=== PATIENT | male | born 1950 | race Caucasian/White ===

== ENCOUNTER 2021-12-05 18:38 | Inpatient (IN) | payer MEDICARE, OTHER ==
[~2021-12-05] VITALS: Ht 180.3 cm; Wt 114.8 kg
[~2021-12-05 18:38] MED LIST: AMIODARONE HCL100 MG PO; METOPROLOL TART25 MG PO
[2021-12-05 19:55] LABS: HEMOGLOBIN 14.7 gm/dl (14.0-17.5); RED BLOOD COUNT 4.41 M/UL (4.20-5.50); WHITE BLOOD COUNT 9.3 K/UL (4.5-11.0)
[2021-12-05 20:26] LABS: BUN/CREATININE RATIO 20 (0-10)
[2021-12-06 04:41] LABS: HEMOGLOBIN 14.4 gm/dl (14.0-17.5); RED BLOOD COUNT 4.32 M/UL (4.20-5.50)
[2021-12-06 05:00] LABS: BUN/CREATININE RATIO 17 (0-10)
[2021-12-06] MEDS ORDERED: OXYBUTYNIN CHLO10 MG PO (08:44)
[2021-12-06] MEDS ORDERED: AMIODARONE HCL200 MG PO (08:45)
[2021-12-06] MEDS ORDERED: ECOTRIN81 MG PO (08:45)
[2021-12-06] MEDS ORDERED: SINEMET 25-1001 EACH PO (08:46)
[2021-12-06] MEDS ORDERED: CELECOXIB100 MG PO (08:47)
[2021-12-06] MEDS ORDERED: CETIRIZINE HCL10 MG PO (08:47)
[2021-12-06] MEDS ORDERED: DOCUSATE SODIU250 MG PO (08:48)
[2021-12-06] MEDS ORDERED: MELATONIN10 M2 PO (08:49)
[2021-12-06] MEDS ORDERED: VITAMIN D21250 MCG PO (08:49)
[2021-12-06] MEDS ORDERED: SINGULAIR10 MG PO (08:50)
[2021-12-06] MEDS ORDERED: ROPINIROLE HCL4 MG PO (08:50)
[2021-12-06] MEDS ORDERED: UNISOM25 MG PO (08:51)
[2021-12-06] MEDS ORDERED: IBUPROFEN PM C1 EACH PO (08:53)
[2021-12-06] MEDS ORDERED: GABAPENTIN600 MG PO ×2 (08:57→08:58)
[2021-12-06] MEDS ORDERED: POLYETHYLENE GL17 GM PO (09:02)
--- NOTE | 2021-12-06 10:46 | NUR ---
REPORT CALLED TO [facility] AND [facility]. FAMILY NOTIFIED OF MOVE TO [phone]
[2021-12-07 03:58] LABS: HEMOGLOBIN 14.1 gm/dl (14.0-17.5); RED BLOOD COUNT 4.23 M/UL (4.20-5.50)
[2021-12-07 04:03] LABS: WHITE BLOOD COUNT 14.1 K/UL (4.5-11.0)
[2021-12-07 04:20] LABS: BUN/CREATININE RATIO 21 (0-10)
[2021-12-08] MEDS ORDERED: IPRAT-ALBUT 0.5-3 ML NEB (10:56)
[2021-12-08] MEDS ORDERED: DECADRON6 MG PO (10:56)
[2021-12-08] MEDS ORDERED: STIMULANT LAXA1 EACH PO (10:56)
== END 2021-12-08 18:16 | disposition home health service (06) | DRG 177 ==
LOC: ER1 18:38 → CDU 21:35 → MED SURG 4 21:35 → CCU 21:35 → MED SURG 4 12-06 11:06
PROVIDERS: Emergency Medicine; Internal Medicine; ADMIT Internal Medicine
PROC: XW033E5 Introduction of Remdesivir Anti-infective into Peripheral Vein, Percutaneous Approach, New Technology Group 5 (ICD-10-PCS; 2021-12-05)
PROC: 3E0333Z Introduction of Anti-inflammatory into Peripheral Vein, Percutaneous Approach (ICD-10-PCS; 2021-12-05)
PROC: 8E0ZXY6 Isolation (ICD-10-PCS; principal; 2021-12-06)
DX: U07.1 COVID-19 (principal); J96.01 Acute respiratory failure with hypoxia; G20 Parkinson's disease; I48.0 Paroxysmal atrial fibrillation; I10 Essential (primary) hypertension; Z87.820 Personal history of traumatic brain injury; Z79.01 Long term (current) use of anticoagulants; Z86.73 Personal history of transient ischemic attack (TIA), and cerebral infarction without residual deficits; Z79.82 Long term (current) use of aspirin; Z98.890 Other specified postprocedural states; Z80.9 Family history of malignant neoplasm, unspecified
CPT/HCPCS: 0240U; 36415; 36600; 51701; 71045; 78580; 80048; 80053; 81001; 82550; 82553; 82728; 82803; 82962; 83605; 83874; 83880; 84484; 85025; 85379; 86140; 87040; 93005; 94640; 94664; 94760; 96374; 99285; A9540; J0248; J1100; J7030; Q9967

== ENCOUNTER → 2021-12-14 | Outpatient (CLI) | payer MEDICARE, OTHER ==
[~2021-12-14] MED LIST changes: +AMIODARONE HCL200 MG PO; +CELECOXIB100 MG PO; +CETIRIZINE HCL10 MG PO; +DECADRON6 MG PO; +DOCUSATE SODIU250 MG PO; +ECOTRIN81 MG PO; +GABAPENTIN600 MG PO; +IBUPROFEN PM C1 EACH PO; +IPRAT-ALBUT 0.5-3 ML NEB; +MELATONIN10 M2 PO; +OXYBUTYNIN CHLO10 MG PO; +POLYETHYLENE GL17 GM PO; +ROPINIROLE HCL4 MG PO; +SINEMET 25-1001 EACH PO; +SINGULAIR10 MG PO; +STIMULANT LAXA1 EACH PO; +UNISOM25 MG PO; +VITAMIN D21250 MCG PO
== END ==
LOC: RAD 12:26
DX: U07.1 COVID-19 (principal)
CPT/HCPCS: 71046

== ENCOUNTER → 2022-01-03 15:01 | Emergency (ER) | payer MEDICARE, OTHER | END | disposition E | LOC: ER1 15:01 | DX: I46.9 Cardiac arrest, cause unspecified (principal) | CPT/HCPCS: 99285 ==